=== PATIENT | female | born 1995 | race Caucasian/White ===

== ENCOUNTER 2024-11-13 14:50 | Outpatient (CLI) | payer OTHER, SELFPAY ==
[2024-11-13 18:25] LABS: Chlamydia DNA Amplified* NOT DETECTED (No Detected); GC DNA Amplified* NOT DETECTED (No Detected)
== END 2024-11-13 14:51 | disposition home or self-care (01) ==
PROVIDERS: Visit Provider Registered Nurse
DX: Z34.91 Encounter for supervision of normal pregnancy, unspecified, first trimester (principal); Z3A.01 Less than 8 weeks gestation of pregnancy
CPT/HCPCS: 76817; 83020; 83021; 85660; 86592; 86703; 86704; 86706; 86762; 86787; 86803; 86850; 86900; 86901; 87086; 87340; 87491; 87591

== ENCOUNTER 2025-02-08 12:53 | Outpatient (CLI) | payer OTHER, SELFPAY ==
--- NOTE | 2025-02-08 13:00 | CRLHL7_ITS ---
For Patients: As a result of the Century Cures Act, medical imaging exams and procedure reports are released immediately into your electronic medical record. You may view this report before your referring provider. If you have questions, please contact your health care provider. OB ULTRASOUND CALLIE by US: 06/30/2025. INDICATION: Supervision of normal . TECHNIQUE: Real time snowden scale imaging of the fetus was performed. Transabdominal imaging performed. position: Vertex. Cervix: Visualized. Technique: Transabdominal. Length of closed cervix: 4.5 cm. Placenta/cord: Placental position: Anterior. Technique: Transabdominal. Placenta tip to internal OS: 12.6 cm. Umbilical Cord: 3-vessel cord. Placenta insertion: Central. Amniotic Fluid: 5.6 cm SDP (greater than/equal to: 2- less than 8 cm). SURVEY: Observed Structures. Calvarium/Spine: Cerebellum: 2.1 cm, 21 w 1 d. Cisterna Magna: 5.2 mm. Nuchal Fold: 3.6 mm. Lateral Ventricle: 6.2 mm. CSP: Yes. Midline Falx: Yes. Choroid Plexus: Yes. Spine: Yes. Abdomen: Stomach: Yes. Abd Cord Insertion: Yes. Urinary Bladder: Yes. Kidneys: Yes. Diaphragm: Yes. Face: Nose/lips: Yes. Orbital view: Yes. Profile: Yes. Limbs: Upper Extremities: Yes. Lower Extremities: Yes. Hands: Yes. Feet: Yes. Vascular: 4-Chamber Heart: Yes. LVOT: Yes. RVOT: Yes. 3VV: Yes. 3VTV: Yes. BPD: 4.8 cm. 20 w, 4 d, 81 percent. HC: 17.4 cm. 20 w, 0 d, 54 percent. AC: 16.0 cm. 21 w, 0 d, 85 percent. FL: 3.4 cm. 20 w, 5 d, 78 percent. FL/AC ratio: 21.44 percent. HC/AC ratio: 1.09. heart rate: 147 bpm. age by this US: 20 w, 4 d. CALLIE by this US: 06/24/2025. EFW: 378.90 g. Weight: 0 lbs, 13 oz. Percentile by CALLIE: 95 percent. IMPRESSION: 1. Sonographic gestational age 20 weeks 4 days and sonographic due date 06/24/2025. Sonographic age 6 days ahead of the clinical age. 2. Estimated weight 95th percentile. Abdominal circumference 85th percentile. 3. Normal anatomic survey. Jose G Leon M.D. Diagnostic Radiologist [email or web address] [place]/Dictated by: Jose G Leon MD @ 02/08/2025 3:24:00 PM (Electronically Signed)
== END 2025-02-08 12:54 | disposition home or self-care (01) ==
LOC: US 12:53
PROVIDERS: Visit Provider Midwife, Lay
DX: Z34.92 Encounter for supervision of normal pregnancy, unspecified, second trimester (principal); Z3A.20 20 weeks gestation of pregnancy
CPT/HCPCS: 76805